=== PATIENT | male | born 1985 | race Caucasian/White ===

== ENCOUNTER 2020-07-12 06:08 | Day surgery (SDC) | payer OTHER ==
[~2020-07-12] VITALS: Ht 188 cm; Wt 130.6 kg
[~2020-07-12 06:08] MED LIST: TERB250T12 PO
[2020-07-12] MEDS ORDERED: ceFAZolin 2 GM/D5W 50 ML IV BAG (J0690 PER 500MG) As Ordered ONE (06:33)
[2020-07-12] MEDS ORDERED: INDO20CA3 PO (06:52)
[2020-07-12] MEDS ORDERED: LIDOCAINE 1% MDV 20ML VIAL As Ordered ONE (07:15)
[2020-07-12] MEDS ORDERED: BUPIVACAINE HCL 0.5% 10ML VIAL As Ordered ONE (07:15)
[2020-07-12] MEDS ORDERED: dexameTHASONE 4 MG/ML 1ML VIAL (J1100 PER 1MG) As Ordered ONE (07:15)
[2020-07-12] MEDS ORDERED: ONDANSETRON 4MG/2ML VIAL As Ordered ONE (07:18)
[2020-07-12] MEDS ORDERED: propofoL 200 MG/20 ML VIAL As Ordered ONE ×2 (07:18→07:52)
[2020-07-12] MEDS ORDERED: LIDOCAINE 2% 100MG/5ML SDV (FOR ANES.) As Ordered ONE (07:18)
[2020-07-12] MEDS ORDERED: fentaNYL 100 MCG/2 ML INJECTION (J3010) As Ordered ONE (07:19)
[2020-07-12] MEDS ORDERED: MIDAZOLAM INJ 2MG/2ML VIAL (J2250 PER 1MG) As Ordered ONE (07:19)
[2020-07-12] MEDS ORDERED: LR 1,000 ML IV ONE (07:45)
[2020-07-12] MEDS ORDERED: ceFAZolin SOD 2 GM in IV 1 EA IV ONE (07:45)
[2020-07-12] MEDS ORDERED: ACETAMINOPHEN 1000MG 100ML IV BTL (OFIRMEV) (J0131 PER 10MG) As Ordered ONE (07:53)
[2020-07-12] MEDS ORDERED: KETOROLAC 60MG 2ML VIAL As Ordered ONE (08:00)
[2020-07-12 08:35] VITALS: BP 114/55
--- NOTE | 2020-08-30 12:24 | RO ---
DATE OF SURGERY: 07/12/2020 SURGEON: Luis Felipe Blunt DPM [employer]ER: None. PREOPERATIVE DIAGNOSIS: Right hallux exostosis. POSTOPERATIVE DIAGNOSIS: Right hallux exostosis. PROCEDURE: Right hallux exostectomy ANESTHESIA: Monitored anesthesia care. PREOPERATIVE INJECTION: 9 cc of a one-to-one mixture of 1% lidocaine plain and 0.5% Marcaine plain. ESTIMATED BLOOD LOSS: Minimal. MATERIALS: 4-0 Vicryl, 4-0 nylon. INJECTABLES: 1 mL Decadron 4 mg/mL. COMPLICATIONS: None. CONDITION: Stable. SPECIMENS: Right hallux exostosis. INDICATIONS: Efrain Astudillo is a gentleman who was brought to [facility] with complaints of pain to his right hallux. He presents today for surgical correction. The patient's side and site were identified and marked in the pre-operative holding area. Consent was reviewed and obtained. All risks, complications, and alternatives to the procedure were explained to the patient in detail and all questions were answered. PROCEDURE: The patient was brought to the operating room and placed on the operating room table in the supine position. Monitored anesthesia care was delivered by the anesthesia team. Preoperative injection of 9 mL of a one-to-one mixture of 1% lidocaine plain and 0.5% Marcaine plain were injected in the right foot. The right foot was prepped and draped in normal sterile fashion. A tourniquet was applied to the right ankle and inflated at 225 mmHg. A dorsal medial incision was drawn over the right hallux. There was a palpable bump at the medial aspect of the hallux interphalangeal joint. The incision was carried through with a #15 blade. A linear capsulotomy was performed at the IPJ and the bone was immediately identified. There was a large osteophyte within the joint space. This was removed using a #15 blade and osteotome. There was some spurring at the dorsal surfaces of the proximal phalanx head and base of the distal phalanx, which were removed with rongeur and smoothed with a rasp. The exostosis and osteophyte were sent to pathology. The site was irrigated with normal saline. Capsule repair and subcutaneous repair were performed with 4-0 Vicryl. The skin closure was performed with 4-0 nylon. Then, 1 mL of Decadron was injected. Sterile dressings were applied. The tourniquet was deflated. The patient was brought to the PACU with vital signs stable and neurovascular status intact. He will be partial weightbearing in a postoperative shoe. He will follow up in the office in two days. BILLY
== END 2020-07-12 08:58 | disposition home or self-care (01) ==
LOC: M SDC 06:08
PROVIDERS: ATTEND Podiatrist Foot & Ankle Surgery
DX: M89.8X7 Other specified disorders of bone, ankle and foot (principal); Z79.899 Other long term (current) drug therapy; M10.9 Gout, unspecified
CPT/HCPCS: 28124; 88304; J0131; J0690; J1100; J1885; J2250; J2405; J3010